=== PATIENT | male | born 1975 | race African-American/Black ===

== ENCOUNTER 2024-10-31 20:56 | Emergency (ER) | payer MEDICAID, OTHER ==
[~2024-10-31] VITALS: Ht 185.4 cm; Wt 90.9 kg
[2024-10-31 21:02] VITALS: TEMP 97.6
[2024-10-31] MEDS ORDERED: AMMONIA 1 EA AMP IH ONE (21:23)
[2024-10-31 21:52] LABS: BASOPHILS % (AUTO) 0.4 % (0.0-2.0); EOSINOPHILS % (AUTO) 0.7 % (1.0-6.0); HEMATOCRIT 43.2 % (41-53); HEMOGLOBIN 14.9 g/dL (13.5-17.5); LYMPHOCYTES # (AUTO) 3.2 K/uL (1.0-4.8); LYMPHOCYTES % (AUTO) 36.7 % (22.0-44.0); MEAN CORPUSCULAR HEMOGLOBIN 28.5 pg (26.0-34.0); MEAN CORPUSCULAR HGB CONC 34.5 G/dL (31.0-37.0); MEAN CORPUSCULAR VOLUME 83 fL (80-100); MONOCYTES # (AUTO) 0.9 K/uL (0.1-1.0); MONOCYTES % (AUTO) 9.9 % (2.0-9.0); NEUTROPHILS # (AUTO) 4.5 K/uL (1.8-7.7); NEUTROPHILS % (AUTO) 52.3 % (40.0-70.0); PLATELET COUNT (AUTO) 349 K/uL (150-450); RED BLOOD CELL COUNT(AUTO) 5.22 MIL/uL (4.50-5.90); RED CELL DISTRIBUTION WIDTH 13.4 % (11.5-14.5); WHITE BLOOD COUNT (AUTO) 8.6 K/uL (4.5-11.0)
[2024-10-31 22:01] LABS: ANION GAP 3 mmol/L (8-16); CARBON DIOXIDE 29 mmol/L (22-29); CHLORIDE 105 mmol/L (98-107); CREATININE 1.02 mg/dL (0.60-1.30); GLOMERULAR FILTR. RATE CALC > 60 mL/min (>60); GLUCOSE,RANDOM 116 mg/dL (70-110); POTASSIUM 3.4 mmol/L (3.5-5.1); SODIUM SERUM 137 mmol/L (136-145); UREA NITROGEN, BLOOD 19 mg/dL (7-18)
[2024-10-31] MEDS: SODIUM CHLORIDE 0.9% 1,000 ML IV ONE (23:01)
[2024-10-31 23:46] VITALS: BP 138/90; PULSE 60; RESP 16; O2SAT 100
[2024-11-10] MEDS ORDERED: RISP-31 PO (13:15)
[2024-11-10] MEDS ORDERED: LISI-892 PO (13:16)
== END 2024-11-01 00:55 | disposition home or self-care (01) ==
LOC: EMS 20:56
DX: F20.9 Schizophrenia, unspecified (principal); F15.90 Other stimulant use, unspecified, uncomplicated; Z87.891 Personal history of nicotine dependence
CPT/HCPCS: 70450; 80048; 85025; 99285